=== PATIENT | female | born 1955 | race Caucasian/White ===

== ENCOUNTER 2024-09-22 07:44 | Outpatient (RCR) | payer MEDICARE, SELFPAY | END 2024-09-22 23:59 | disposition home or self-care (01) | LOC: RPT 07:44 | PROVIDERS: ATTENDING PHYSICIAN Internal Medicine; REFERRING PHYSICIAN Orthopaedic Surgery Orthopaedic Surgery of the Spine | DX: Z47.89 Encounter for other orthopedic aftercare (principal); M54.2 Cervicalgia; Z73.6 Limitation of activities due to disability; R20.0 Anesthesia of skin; M79.602 Pain in left arm; M62.81 Muscle weakness (generalized) | CPT/HCPCS: 97010; 97110; 97112; 97140; 97162 ==

== ENCOUNTER 2024-11-20 10:23 | Emergency (ER) | payer MEDICARE, SELFPAY ==
[2024-11-20] VITALS (8 sets, daily range): BP systolic 135–159; BP diastolic 83–141; BMI 28.2
[2024-11-20 10:58] LABS: Hematocrit 40.5 % (37.0-47.0); Hemoglobin 13.0 g/dL (12.0-16.0); Mean Corp Hgb Conc. 32.1 g/dL (33.0-37.0); Mean Corpuscular Volume 88.2 fL (81.0-99.0); Nucleated Red Blood Cells % 0 %; Platelet Count 287 10^3/uL (130-400); Red Cell Dist. Width 13.2 % (11.5-14.5)
[2024-11-20 11:12] LABS: ALT (SGPT) 52 U/L (0-35); AST (SGOT) 40 U/L (14-36); Albumin 4.3 g/dl (3.5-5.0); Alkaline Phosphatase 61 U/L (38-126); Blood Urea Nitrogen 16 mg/dl (7-17); Calcium 10.0 mg/dl (8.4-10.2); Carbon Dioxide 26 mmol/L (22-30); Chloride 108 mmol/L (98-107); Glucose 167 mg/dl (70-99); Potassium 4.7 mmol/L (3.5-5.1); Sodium 138 mmol/L (135-145); Total Protein 6.8 g/dl (6.3-8.2); eGFR > 60.00
[2024-11-20 11:23] LABS: Troponin I < 0.012 ng/ml
--- NOTE | 2024-11-20 11:59 | ED.GENMED ---
History of Present Illness
General
Chief Complaint: Chest Pain
Source: patient
Exam Limitations: none
Time Seen by Provider: 11/20/24 11:44
History of Present Illness
History of Present Illness:
69-year-old female presents with central chest discomfort that radiated to her neck into her back. Today's episode was different than it has been, she has had intermittent chest discomfort over the past couple weeks nonexertional quite random.
Today the symptoms into her neck and back were different. She also notes slight short of breath. No pleuritic component to her discomfort. She has not noticed any increased pain with eating. No recent travel or surgery. No leg swelling or calf
pain currently on my exam she is pain-free. She does have a strong family history of cardiac disease.
Past History
Past History
ED Past Medical History: None
ED Past Surgical History: None
Phy Exam
Physical Exam
Physical Exam:
General: Well-appearing female no acute respiratory distress
HEENT normocephalic atraumatic
Heart: Regular rate and rhythm lungs: Clear no wheeze
Abdomen is soft nontender
Extremities: No cyanosis
Vascular: 2+ radial pulses bilaterally
Scores
Heart Score for Chest Pain Patients
STEMI patient?: No
History: Slightly or Non-Suspicious
ECG: Normal
Age: >/= 65 years
Risk Factors: 1 or 2 Risk Factors
Troponin: </= Normal Limit
Heart Score for Chest Pain Patients: 3
Heart Score Risk: 2.5% MACE over next 6 weeks
Course
Orders/Labs/Results
Orders:
Orders
11/20/24 10:35
Electrocardiogram (*1) Urgent
Reason for Study: Chest Pain
EKG- Treatment ONCE
11/20/24 10:41
CMP [Comprehensive Metabolic Panel] Urgent
Complete Blood Count/With Diff Urgent
Lipase Urgent
Comment: ADD ON
Troponin I Urgent
11/20/24 11:58
CT Chest Angio W/wo Iv Contras Urgent
Comment:
Reason For Exam: chest, neck and back pain
11/20/24 12:01
Add On- LAB Urgent
Tests Added?: lipase
11/20/24 14:45
Troponin I Urgent
Abnormal Lab Results
11/20/24
10:41
MCHC 32.1 L g/dL
(33.0-37.0)
Chloride 108 H mmol/L
(98-107)
Glucose 167 H mg/dl
(70-99)
AST 40 H U/L
(14-36)
ALT 52 H U/L
(0-35)
11/20/24 10:41
11/20/24 10:41
Vital Signs
Initial and Last Documented VS:
Initial Vital Signs
Temp Pulse Resp BP Pulse Ox
97.8 F 79 18 149/100 99
11/20/24 10:30 11/20/24 10:30 11/20/24 10:30 11/20/24 10:30 11/20/24 10:30
Last Documented Vital Signs
Temp Pulse Resp BP Pulse Ox
97.8 F 67 9 156/83 97
11/20/24 10:30 11/20/24 16:15 11/20/24 16:15 11/20/24 15:05 11/20/24 16:15
MDM/Problems Addressed
Differential Diagnosis Includes:
Chest neck and back pain. Consider ACS versus PE versus dissection versus GI related discomfort. EKG through triage shows sinus rhythm without ischemic changes. Initial troponin is undetectable. Repeat troponin pending. Will add lipase. Will
also check CT angio of the chest. She is slightly hypertensive 140s over 90s
*Pulse Oximetry
SaO2: 97
Oxygen Mode of Delivery: Room air
Patient hypoxic: no
*Critical Care Note
Total Time (30-74mins, 75-104mins- exclusive of procedures): Not Applicable
Update Note
Update Note:
Initial and repeat troponin undetectable. CT angio of the chest also normal without signs of dissection or aneurysm. Patient remains pain-free. Workup here unremarkable but given significant family history of cardiac disease, will refer her to
cardiology for follow-up. Stable for discharge otherwise
ED Attending Note
-
Portions of this chart may have been created with voice recognition software.� Occasional wrong word or��sound alike� substitutions may have occurred due to the inherent limitations of voice recognition software.
Discharge Plan
Departure
Patient Disposition: Home (Routine Discharge)
Date of Disposition: 11/20/24
Time of Disposition: 16:33
Patient with high blood pressure during this ER visit?: No
Discharge Problem:
Chest pain
Instructions: Chest Pain CBC Follow Up
Referrals:
Bibi Dumont MD [Family Provider, Family Practice]
Activity Restrictions/Additional Instructions:
Please return here for worsening symptoms otherwise follow-up with cardiology
Interventions
Interventions:
*Risk Screen - Suicide Last Done: 11/20/24 10:30
*General Assessment Last Done: 11/20/24 11:39
*Neglect/Abuse Screening Last Done: 11/20/24 10:30
*ED- Fall Risk Assessment Last Done: 11/20/24 11:39
*ED COVID-19 Vaccine History Last Done: 11/20/24 11:39
ED- Cardiac Assessment Last Done: 11/20/24 11:39
Discharge Date and Time
Print Language: JAPANESE
[2024-11-20 12:53] LABS: Lipase 60 U/L (23-300)
[2024-11-20 15:26] LABS: Troponin I < 0.012 ng/ml
== END 2024-11-20 16:48 | disposition home or self-care (01) ==
LOC: EMR 10:23
PROVIDERS: Physician Assistant; EMERGENCY PHYSICIAN Emergency Medicine; FAMILY PHYSICIAN Family Medicine
DX: R07.9 Chest pain, unspecified (principal); Z82.49 Family history of ischemic heart disease and other diseases of the circulatory system
CPT/HCPCS: 99284; 71275; 80053; 83690; 84484; 85025; 93005; Q9967

== ENCOUNTER 2024-11-22 08:51 | Outpatient (RCR) | payer MEDICARE, SELFPAY | END 2024-11-22 23:59 | disposition home or self-care (01) | LOC: RPT 08:51 | PROVIDERS: ATTENDING PHYSICIAN Physical Medicine & Rehabilitation; FAMILY PHYSICIAN Family Medicine | DX: M48.061 Spinal stenosis, lumbar region without neurogenic claudication (principal); Z73.6 Limitation of activities due to disability; R26.89 Other abnormalities of gait and mobility | CPT/HCPCS: 97010; 97110; 97112; 97161; 97530 ==

== ENCOUNTER 2024-11-28 10:01 | Outpatient (RCR) | payer MEDICARE, SELFPAY | END 2024-12-01 10:54 | disposition home or self-care (01) | LOC: RPT 10:01 | PROVIDERS: ATTENDING PHYSICIAN Physical Medicine & Rehabilitation; FAMILY PHYSICIAN Family Medicine | DX: M48.061 Spinal stenosis, lumbar region without neurogenic claudication (principal); Z73.6 Limitation of activities due to disability; R26.89 Other abnormalities of gait and mobility | CPT/HCPCS: 97010; 97110 ==

== ENCOUNTER → 2024-12-06 07:52 | Outpatient (REF) | payer MEDICARE, SELFPAY | LOC: RCS 07:52 | PROVIDERS: ATTENDING PHYSICIAN Internal Medicine Cardiovascular Disease; FAMILY PHYSICIAN Family Medicine | DX: R07.9 Chest pain, unspecified (principal); Z82.49 Family history of ischemic heart disease and other diseases of the circulatory system | CPT/HCPCS: 93017 ==

== ENCOUNTER → 2024-12-07 14:20 | Outpatient (REF) | payer MEDICARE, SELFPAY | LOC: RCS 14:20 | PROVIDERS: ATTENDING PHYSICIAN Internal Medicine Cardiovascular Disease; FAMILY PHYSICIAN Family Medicine | DX: R03.0 Elevated blood-pressure reading, without diagnosis of hypertension (principal); R07.9 Chest pain, unspecified | CPT/HCPCS: 93306 ==

== ENCOUNTER → 2024-12-08 06:50 | Outpatient (REF) | payer MEDICARE, SELFPAY | LOC: RAD 06:50 | PROVIDERS: ATTENDING PHYSICIAN Family Medicine | DX: E04.2 Nontoxic multinodular goiter (principal) | CPT/HCPCS: 76536 ==

== ENCOUNTER → 2024-12-14 08:45 | Outpatient (REF) | payer MEDICARE, SELFPAY | LOC: RCS 08:45 | PROVIDERS: ATTENDING PHYSICIAN Internal Medicine Cardiovascular Disease; FAMILY PHYSICIAN Family Medicine | DX: R94.39 Abnormal result of other cardiovascular function study (principal); R07.9 Chest pain, unspecified | CPT/HCPCS: 93017; 93350 ==

== ENCOUNTER → 2025-01-10 08:51 | Outpatient (REF) | payer MEDICARE, SELFPAY ==
[2025-01-10 10:05] VITALS: BP 136/84; BP_SYST 78
[2025-01-10 10:51] VITALS: BP 136/84
== END ==
LOC: RADI 08:51
PROVIDERS: ATTENDING PHYSICIAN Family Medicine
DX: E04.1 Nontoxic single thyroid nodule (principal)
CPT/HCPCS: 10005; 88173

== ENCOUNTER → 2025-03-02 08:10 | Outpatient (REF) | payer MEDICARE, SELFPAY ==
[2025-03-02 09:44] LABS: Hematocrit 41.1 % (37.0-47.0); Hemoglobin 13.2 g/dL (12.0-16.0); Mean Corp Hgb Conc. 32.1 g/dL (33.0-37.0); Mean Corpuscular Volume 87.8 fL (81.0-99.0); Nucleated Red Blood Cells % 0 %; Platelet Count 282 10^3/uL (130-400); Red Cell Dist. Width 12.8 % (11.5-14.5)
[2025-03-02 10:05] LABS: ALT (SGPT) 46 U/L (0-35); AST (SGOT) 39 U/L (14-36); Albumin 4.4 g/dl (3.5-5.0); Alkaline Phosphatase 66 U/L (38-126); Blood Urea Nitrogen 12 mg/dl (7-17); Calcium 10.1 mg/dl (8.4-10.2); Carbon Dioxide 29 mmol/L (22-30); Chloride 105 mmol/L (98-107); Glucose 103 mg/dl (70-99); HDL Cholesterol 57 mg/dl; LDL Cholesterol, Calculated 133 mg/dl; Potassium 4.8 mmol/L (3.5-5.1); Sodium 138 mmol/L (135-145); Total Protein 7.0 g/dl (6.3-8.2); Very Low Density Lipoprotein 31 mg/dl (0-30); eGFR > 60.00
== END ==
LOC: REG 08:10
PROVIDERS: ATTENDING PHYSICIAN Family Medicine
DX: E04.2 Nontoxic multinodular goiter (principal); R73.03 Prediabetes; E78.9 Disorder of lipoprotein metabolism, unspecified; R03.0 Elevated blood-pressure reading, without diagnosis of hypertension
CPT/HCPCS: 36415; 80053; 80061; 84439; 84443; 85025

== ENCOUNTER 2025-03-04 05:31 | Observation (INO) | payer MEDICARE, SELFPAY ==
[2025-03-04] VITALS (14 sets, daily range): BP systolic 109–138; BP diastolic 68–103; PULSE 90; O2SAT 99; BMI 29.7; BMI 23.6
[2025-03-04 01:00] LABS: Hematocrit 37.7 % (37.0-47.0); Hemoglobin 12.0 g/dL (12.0-16.0); Mean Corp Hgb Conc. 31.8 g/dL (33.0-37.0); Mean Corpuscular Volume 88.3 fL (81.0-99.0); Nucleated Red Blood Cells % 0 %; Platelet Count 284 10^3/uL (130-400); Red Cell Dist. Width 12.9 % (11.5-14.5)
--- NOTE | 2025-03-04 01:05 | ED.GENMED ---
History of Present Illness
<ELGIN Page Jr. Last Filed: 03/05/25 06:15>
General
Chief Complaint: Fall
Source: patient
Exam Limitations: none
Time Seen by Provider: 03/04/25 00:38
Nursing documentation reviewed up to this point in time: agreed with
History of Present Illness
History of Present Illness:
69-year-old female presenting to the emergency department today with concerns of a fall down 5 steps hit her right hip directly denies any additional injuries did not hit her head did not lose consciousness no neck pain no abdominal pain no arm pain.
Past History
<ELGIN Page Jr. Last Filed: 03/05/25 06:15>
Past History
ED Past Medical History: None
ED Past Surgical History: None
Review of Systems
<Sukumar Hilario Jr., PA-C - Last Filed: 03/05/25 06:15>
Review of Systems
Allergies reviewed?: Yes
All Other Systems: ROS reviewed and negative except as documented in HPI and ROS
Phy Exam
<ELGIN Page Jr. Last Filed: 03/05/25 06:15>
Physical Exam
Physical Exam:
GENERAL: Alert , in no apparent distress
EYE: pupils equal and reactive
NECK: Supple, no significant adenopathy.
ENT: o/p clr, mmm.
CARDIAC: Regular rate and rhythm .
LUNGS: Clear breath sounds bilaterally, no acute respiratory distress, no wheezes/rales/rhonchi
ABDOMEN: Soft, without focal tenderness, no r/g, no cvat
NEUROLOGICAL: Alert and oriented, no focal neuro deficits
SKIN: Warm and dry, skin intact.
MUSCULOSKELETAL: Tender palpation of the right lateral superior hip region and right buttock with associated swelling to the area. No overlying skin changes able to move at the hip with some discomfort. No edema, well perfused.
PSYCH: Normal and appropriate interaction.
Course
<Sukumar Hilario Jr., ELGIN - Last Filed: 03/05/25 06:15>
Orders/Labs/Results
Orders:
Orders
03/04/25 00:49
Complete Blood Count/With Diff Urgent
Comprehensive Metabolic Panel Urgent
03/04/25 00:54
Hip, Right 2-3 Views [CR Hip - RT w/wo Pel 2-3 Vw*] Urgent
Comment:
Reason For Exam: right hip pin after fall
Include a pelvis x-ray?: Yes
03/04/25 01:24
Type+Screen Routine
BBK Wristband Number:
03/04/25 02:25
CT Pelvis W/o Iv Contrast Urgent
Comment:
Reason For Exam: fall cant walk, xray NAD
03/04/25 02:48
Ketorolac [Toradol] 15 mg IV NOW STA
03/04/25 04:14
Ondansetron Injectable [Zofran] 4 mg .ROUTE .STK-MED ONE
03/04/25 04:16
Ondansetron Injectable [Zofran] 4 mg IV NOW STA
03/04/25 04:33
Ice Pack-Treatment DIRECTED
Location: right posterior hip
03/04/25 05:15
Admit/Transfer Patient As Directed
Co-Sign Provider:
Level of Care: Observation services
Assign to:: Medical/Surgical
Physician / Group: Mathew
Diagnosis: Ambulatory dysfunction, Large R gluteal subcutanous hematoma
Reason for Hospitalization: Ambulatory dysfunction, Large R gluteal subcutanous hematoma
Code Status As Directed
Resuscitation Status: Full Code
PRN Pain Medication Management As Directed
May give lesser potent ordered pain med per pt: Yes
preference::
Protocol:: Medication orders for pain may be administered in a
manner that supports deferring to patient preference
when the pt is:
- Requesting an ordered lesser potent pain medication.
Least to most potent pain medications are defined
as: acetaminophen < NSAID < tramadol < opioids
(morphine, oxycodone, hydromorphone).
- Requesting a lesser dose of the same medication IF
ORDERED.
- Requesting a less intrusive route of administration
if both routes are prescribed by the provider (PO <
IV).
03/04/25 06:09
Acetaminophen [Tylenol] 650 mg PO Q4HPRN PRN
Bisacodyl [Dulcolax] 10 mg RECTAL [id number] PRN
Dextrose 50%-Water [Dextrose 50% Syringe] 12.5 grams IV [id number] PRN
Docusate W/Senna [Senokot-S] 1 tablet PO BIDPRN PRN
Glucagon [GlucaGen] 1 mg IM PRN PRN
Oxycodone [Roxicodone] 5 mg PO Q4HPRN PRN
Polyethylene Glycol Powder [Miralax] 17 grams PO DAILYPRN PRN
03/04/25 06:09
Activity As Directed
Activity Level: With Assistance
Bedside Glucose Monitoring As Directed
Frequency: AC&HS
Additional Instructions:: Change to q6h if pt on TPN, tube feeding or not eating
Ice Application [Cold Application] As Directed
Location: Right gluteal
Frequency: Intermittent q4h
Duration of Application: No longer than 30 minutes
Method of Delivery: Ice packs
Pneumatic Compression Sleeves As Directed
Type: Knee high
Vital Signs As Directed
Frequency: Per unit guidelines
Pulse Ox/spot Check [RESP] Routine
Quantity: 1
Pt Eval And Treat Routine
Activity Level: With Assistance
DX Deep Vein Thrombosis Video Routine
03/04/25 07:28
H&H Q8H
03/04/25 07:30
Insulin Aspart Corrective Low [Novolog Flexpen-Low Resistance] See Protocol SC AC
03/04/25 08:00
Fluoxetine HCl [Prozac] 40 mg PO DAILY
METFORMIN HCl [Glucophage] 500 mg PO BID
Pantoprazole [Protonix] 40 mg PO DAILY
03/04/25 09:00
Ketorolac [Toradol] 10 mg IV Q6HPRN PRN
03/04/25 10:00
Ondansetron Injectable [Zofran] 4 mg IV Q6HPRN PRN
03/04/25 16:27
H&H Q8H
Abnormal Lab Results
03/04/25
00:49
WBC 13.6 H 10^3/uL
(4.8-10.8)
MCHC 31.8 L g/dL
(33.0-37.0)
Absolute Neuts (auto) 9.8 H 10^3/uL
(1.4-6.5)
Absolute Monos (auto) 0.8 H 10^3/uL
(0.1-0.6)
Lymphocytes % 19.5 L %
(20.5-51.1)
Glucose 137 H mg/dl
(70-99)
AST 39 H U/L
(14-36)
ALT 39 H U/L
(0-35)
03/04/25 00:49
03/04/25 00:49
Vital Signs
Initial and Last Documented VS:
Initial Vital Signs
BP
132/81
03/04/25 00:40
Last Documented Vital Signs
Temp Pulse Resp BP Pulse Ox
98.3 F 97 18 137/71 96
03/04/25 23:55 03/04/25 23:55 03/04/25 23:55 03/04/25 23:55 03/04/25 23:55
<Ruth Medina, DO - Last Filed: 03/04/25 04:34>
Orders/Labs/Results
Orders:
Orders
03/04/25 00:49
Complete Blood Count/With Diff Urgent
Comprehensive Metabolic Panel Urgent
03/04/25 00:54
Hip, Right 2-3 Views [CR Hip - RT w/wo Pel 2-3 Vw*] Urgent
Comment:
Reason For Exam: right hip pin after fall
Include a pelvis x-ray?: Yes
03/04/25 01:24
Type+Screen Routine
BBK Wristband Number:
03/04/25 02:25
CT Pelvis W/o Iv Contrast Urgent
Comment:
Reason For Exam: fall cant walk, xray NAD
03/04/25 02:48
Ketorolac [Toradol] 15 mg IV NOW STA
03/04/25 04:14
Ondansetron Injectable [Zofran] 4 mg .ROUTE .STK-MED ONE
03/04/25 04:16
Ondansetron Injectable [Zofran] 4 mg IV NOW STA
03/04/25 04:33
Ice Pack-Treatment DIRECTED
Location: right posterior hip
03/04/25 05:15
Admit/Transfer Patient As Directed
Co-Sign Provider:
Level of Care: Observation services
Assign to:: Medical/Surgical
Physician / Group: Mathew
Diagnosis: Ambulatory dysfunction, Large R gluteal subcutanous hematoma
Reason for Hospitalization: Ambulatory dysfunction, Large R gluteal subcutanous hematoma
Code Status As Directed
Resuscitation Status: Full Code
PRN Pain Medication Management As Directed
May give lesser potent ordered pain med per pt: Yes
preference::
Protocol:: Medication orders for pain may be administered in a
manner that supports deferring to patient preference
when the pt is:
- Requesting an ordered lesser potent pain medication.
Least to most potent pain medications are defined
as: acetaminophen < NSAID < tramadol < opioids
(morphine, oxycodone, hydromorphone).
- Requesting a lesser dose of the same medication IF
ORDERED.
- Requesting a less intrusive route of administration
if both routes are prescribed by the provider (PO <
IV).
03/04/25 06:09
Acetaminophen [Tylenol] 650 mg PO Q4HPRN PRN
Bisacodyl [Dulcolax] 10 mg RECTAL [id number] PRN
Dextrose 50%-Water [Dextrose 50% Syringe] 12.5 grams IV [id number] PRN
Docusate W/Senna [Senokot-S] 1 tablet PO BIDPRN PRN
Glucagon [GlucaGen] 1 mg IM PRN PRN
Oxycodone [Roxicodone] 5 mg PO Q4HPRN PRN
Polyethylene Glycol Powder [Miralax] 17 grams PO DAILYPRN PRN
03/04/25 06:09
Activity As Directed
Activity Level: With Assistance
Bedside Glucose Monitoring As Directed
Frequency: AC&HS
Additional Instructions:: Change to q6h if pt on TPN, tube feeding or not eating
Ice Application [Cold Application] As Directed
Location: Right gluteal
Frequency: Intermittent q4h
Duration of Application: No longer than 30 minutes
Method of Delivery: Ice packs
Pneumatic Compression Sleeves As Directed
Type: Knee high
Vital Signs As Directed
Frequency: Per unit guidelines
Pulse Ox/spot Check [RESP] Routine
Quantity: 1
Pt Eval And Treat Routine
Activity Level: With Assistance
DX Deep Vein Thrombosis Video Routine
03/04/25 07:28
H&H Q8H
03/04/25 07:30
Insulin Aspart Corrective Low [Novolog Flexpen-Low Resistance] See Protocol SC AC
03/04/25 08:00
Fluoxetine HCl [Prozac] 40 mg PO DAILY
METFORMIN HCl [Glucophage] 500 mg PO BID
Pantoprazole [Protonix] 40 mg PO DAILY
03/04/25 09:00
Ketorolac [Toradol] 10 mg IV Q6HPRN PRN
03/04/25 10:00
Ondansetron Injectable [Zofran] 4 mg IV Q6HPRN PRN
03/04/25 16:27
H&H Q8H
Abnormal Lab Results
03/04/25
00:49
WBC 13.6 H 10^3/uL
(4.8-10.8)
MCHC 31.8 L g/dL
(33.0-37.0)
Absolute Neuts (auto) 9.8 H 10^3/uL
(1.4-6.5)
Absolute Monos (auto) 0.8 H 10^3/uL
(0.1-0.6)
Lymphocytes % 19.5 L %
(20.5-51.1)
Glucose 137 H mg/dl
(70-99)
AST 39 H U/L
(14-36)
ALT 39 H U/L
(0-35)
03/04/25 00:49
03/04/25 00:49
Vital Signs
Initial and Last Documented VS:
Initial Vital Signs
BP
132/81
03/04/25 00:40
Last Documented Vital Signs
Temp Pulse Resp BP Pulse Ox
98.3 F 97 18 137/71 96
03/04/25 23:55 03/04/25 23:55 03/04/25 23:55 03/04/25 23:55 03/04/25 23:55
<Sukumar Hilario Jr., PA-C - Last Filed: 03/05/25 06:15>
MDM/Problems Addressed
MDM/Problems Addressed:
69-year-old female presenting after trip down 5 steps landing on the right hip. No loss of consciousness did not hit her head not on blood thinners. Patient does have pain and swelling to the right buttock region. Initial x-ray did not show signs
of fracture but patient unable to ambulate concerning the CT scan was performed.
<Sukumar Hilario Jr., PA-C - Last Filed: 03/05/25 06:15>
*Pulse Oximetry
SaO2: 99
Oxygen Mode of Delivery: Room air
<Ruth Medina DO - Last Filed: 03/04/25 04:34>
*Radiology
Radiology exam reviewed: radiology read reviewed
*Pulse Oximetry
Patient hypoxic: no
*Critical Care Note
Total Time (30-74mins, 75-104mins- exclusive of procedures): Not Applicable
ED Attending Note
<Sukumar Hilario Jr., PA-C - Last Filed: 03/05/25 06:15>
-
Portions of this chart may have been created with voice recognition software.� Occasional wrong word or��sound alike� substitutions may have occurred due to the inherent limitations of voice recognition software.
<Ruth Medina DO - Last Filed: 03/04/25 04:34>
ED Attending Note
Patient seen and examined by attending physician: Yes
I performed a history and physical exam of patient and discussed management with resident, I reviewed resident's note and agree with documented findings and plan of care.: Yes
ED Attending Note:
69-year-old woman suffered a trip and fall at home tonight landing on her right buttock/right posterior hip. Presents with severe right hip pain. Unable to bear weight.
Exam notable for moderate soft tissue swelling right posterior hip/right buttock, exquisite local tenderness. Moderately restricted range of motion of right hip. Distal sensation and strength intact.
Right hip/pelvis x-ray shows no evidence of fracture.
CT shows no evidence of fracture but note of a large subcutaneous hematoma overlying the right gluteal musculature measuring 13 x 3 x 11 cm with surrounding soft tissue stranding.
She remains hemodynamically stable. Labs within normal limits.
Due to inability to bear weight, patient will require acute hospitalization for pain control.
Discharge Plan
Departure
Patient Disposition: Admit
Date of Disposition: 03/04/25
Time of Disposition: 04:31
Admit to: Med/Surg
Admit to doctor: Julienne
Presentation/result/management discussed w/ accepting MD/DO: Hospitalist
Condition: Fair
Discharge Problem:
Right buttock contusion/hematoma, Acute ambulatory dysfunction
Interventions
Interventions:
*Risk Screen - Suicide Last Done: 03/04/25 00:49
*General Assessment Last Done: 03/04/25 00:50
*Neglect/Abuse Screening Last Done: 03/04/25 00:49
*ED COVID-19 Vaccine History Last Done: 03/04/25 00:45
*ED Influenza Vaccine History Last Done: 03/04/25 00:45
[facility] Fall Risk Assessment Tool Last Done: 03/04/25 00:36
*Nursing Disposition Last Done: 03/04/25 06:22
ED-Musculoskeletal Assessment Last Done: 03/04/25 01:17
ED- Neurological Assessment Last Done: 03/04/25 01:16
ED-Skin Assessment Last Done: 03/04/25 01:17
Discharge Date and Time
Discharge Date/Time: 03/04/25 06:23
[2025-03-04 01:29] LABS: ALT (SGPT) 39 U/L (0-35); AST (SGOT) 39 U/L (14-36); Albumin 4.1 g/dl (3.5-5.0); Alkaline Phosphatase 60 U/L (38-126); Blood Urea Nitrogen 17 mg/dl (7-17); Calcium 10.2 mg/dl (8.4-10.2); Carbon Dioxide 26 mmol/L (22-30); Chloride 107 mmol/L (98-107); Estimated Creatinine Clearance 87 ml/min; Glucose 137 mg/dl (70-99); Potassium 4.6 mmol/L (3.5-5.1); Sodium 138 mmol/L (135-145); Total Protein 6.8 g/dl (6.3-8.2); eGFR > 60.00
[2025-03-04] MEDS: TORADOL 15 MG IV (03:01)
[2025-03-04] MEDS: ZOFRAN 4 MG IV (04:16)
--- NOTE | 2025-03-04 04:53 | HPS.HSE ---
Family Physician
-
Family Physician: Bibi Dumont MD
Chief Complaint
-
Falls
History of Present Illness
This is a 69-year-old female with past medical history significant for ceo-shdwdak-wjegjeavg diabetes, GERD, nonalcoholic fatty liver disease, recent diagnosis of thyroid nodule pending for evaluation, new pulmonary nodule, on intra-abdominal nodule
pending MRI studies in about 2 weeks presents to the emergency department with right gluteal pain following a fall.
Patient reports a walking down wooden flight of stairs with socks on. She was walking had a spiral stairs she slipped and fell. She landed on her buttocks. She immediately had pain and swelling noted in the right gluteal region. She had no loss
of consciousness. She did not feel lightheaded or dizzy. She did not have a head strike. She has a prior history of cervical spine fusion in April and July to protect her head and neck.
She was transferred to the emergency department to evaluate for traumatic injury giving the degree of swelling in the gluteal region. She is not on any blood thinners. She denies NSAID use.
In the emergency department the patient has been afebrile, blood pressure was 182/100 with pulse of 61 and saturation of 90% on room air. Hemoglobin was 12.0, white count 30.6 platelet 284. Electrolytes BUN and creatinine were all in the normal
range. There is slight increase in AST and ALT to [address] of the pelvis showing large subcutaneous hematoma overlying the right gluteal musculature measuring 13.3 x 3.6 x 11.3 cm with surrounding soft tissue stranding. No fractures.
Medical History
Past Medical History
Past Medical History: Reports GERD (Lama's esophagus), NIDDM, Psychiatric (Anxiety) and Other (Nonalcoholic fatty liver disease, irritable bowel syndrome,)
Past Surgical History: Reports Appendectomy, and Orthopedic (cervical laminectomy c3,c7 and c4,5,6; right shoulder repair )
Social History
Tobacco: Non-smoker
Alcohol: Occasional
Drug: None
Personal: Single
Living: With Family
Family History
Family History: Not pertinent
Allergies / Home Medications
Allergies reflects when Allergies were last updated in [employer].
Home Medications with original date entered in [employer]
Allergy/Medication List:
Allergies
Allergy/AdvReac Type Severity Reaction Status Date / Time
nickel Allergy Unknown Unknown Verified 01/10/25 10:15
Sulfa (Sulfonamide Allergy Unknown Rash Verified 01/10/25 10:15
Antibiotics)
Home Medications
cholecalciferol (vitamin D3) 25 mcg (1,000 unit) capsule (Vitamin D3) 25 mcg PO DAILY 01/10/25
fluoxetine 40 mg capsule 40 mg PO DAILY 01/10/25
metformin 500 mg tablet 500 mg PO BID 01/10/25
omeprazole 40 mg capsule,delayed release 40 mg PO DAILY 01/10/25
Gabapentin 100 mg tablets, 300 mg p.o. daily
Review of Systems
-
Constitutional: Reports No Symptoms
EENT: Reports No Symptoms
Respiratory: Reports No Symptoms
Cardiac: Reports No Symptoms
Abdomen/GI: Reports No Symptoms
: Reports No Symptoms
Musculoskeletal: Reports No Symptoms
Skin: Reports Other
Neurological: Reports No Symptoms
Endocrine: Reports No Symptoms
Hematologic/Lymphatic: Reports No Symptoms
Psych: Reports No Symptoms
Physical Exam
Vital Signs
Vital Signs
Temp Pulse Resp BP Pulse Ox
97.4 F 67 22 122/102 99
03/04/25 00:41 03/04/25 04:01 03/04/25 04:01 03/04/25 04:01 03/04/25 04:01
Physical Exam
General: Well Developed, Well Nourished and No Apparent Distress
HEENT: NormoCephalic, Moist mucous membranes and Atraumatic
Respiratory: Clear
Cardiac: S1/S2 and Regular Rhythm; No Murmur or Rub
GI: Soft, Non Tender, Non Distended and Normal Bowel Sounds; No Organomegaly
Rectal: Deferred by Provider
Musculoskeletal: No Clubbing, No Cyanosis, No Edema and Other (Right gluteal hematoma, normal dorsalis pedis and tibialis posterior pulses bilaterally)
Skin: Warm
Neuro: AO x 3 and Nonfocal/grossly intact
Hematologic/Lymphatic: No Lymphadenopathy
Psych: Calm
Laboratory Results
-
03/04/25 00:49
03/04/25 00:49
Laboratory Results
Total Bilirubin 0.5 mg/dl (0.2-1.3) 03/04/25 00:49
AST 39 U/L (14-36) H 03/04/25 00:49
ALT 39 U/L (0-35) H 03/04/25 00:49
Alkaline Phosphatase 60 U/L (38-126) 03/04/25 00:49
Data Reviewed
-
CT Scan: Report Reviewed by me
Lab Data: Labs Reviewed by me
Old Records: Reviewed
Impression/Plan
-
IMPRESSION:
Patient with a mechanical fall while walking at down a flight of stairs and sleeping striking her buttocks and developing a large right sided subcutaneous hematoma overlying the right gluteal. She has significant pain and some ambulatory
dysfunction at this time. No fractures. Labs are stable. No significant drop in hemoglobin. No evidence of compartment syndrome.
PLAN:
Fall with a large right-sided subcutaneous hematoma overlying the right gluteal muscle. No deep hematoma. No compromise tissues. No fractures or dislocation.
� Admit to MedSurg observation
� Patient is not on any anticoagulation, hold off on anticoagulants at this time
- Trend H&H
� Pain control with acetaminophen and Toradol and if needed low-dose opioids
� Apply ice daily
� PT
Diabetes
� Can continue metformin 500 mg twice daily for now
� Sliding scale insulin
GERD
� Continue Meprazole
DVT prophylaxis�SCDs
CODE STATUS�full code
[2025-03-04 06:59] LABS: Glucose - Point of Care 123 mg/dl (70-99)
[2025-03-04 08:26] LABS: Hematocrit 32.4 % (37.0-47.0); Hemoglobin 10.6 g/dL (12.0-16.0)
[2025-03-04] MEDS: TORADOL 10 MG IV ×2 (09:27→21:14)
[2025-03-04] MEDS: PROTONIX 40 MG PO (09:27)
[2025-03-04] MEDS: GLUCOPHAGE 500 MG PO ×2 (09:27→18:02)
[2025-03-04] MEDS: PROZAC 40 MG PO (09:27)
[2025-03-04] MEDS: FLUSH (NSS) 2 FLUSH IV (09:28)
--- NOTE | 2025-03-04 11:53 | CM ---
I.A: Completed By KAREN Liu
Patient Lives with in a [address] with 2 [address]YOTI and 12 STI. No DME, No VN/PT, and No STR.
PCP: Dr. Bibi Drake
Pharm: [facility], but uses [facility].
Patient has transportation Home. PLAN: Anticipate Home No Needs. STALEY Signed
[2025-03-04] MEDS: TYLENOL 650 MG PO (11:54)
[2025-03-04 12:05] LABS: Glucose - Point of Care 136 mg/dl (70-99)
--- NOTE | 2025-03-04 14:20 | W.PN.UPDATE ---
Update Note
Progress Note Update
left buttock is bruised and some what firm, without evidence of compartment syndrome
will consult vascular suregry
trend hgb
if trending down then will need ct pel with con to assess for extravasation, renal function stable if needed
initial ct pelvis without con
[2025-03-04 16:35] LABS: Hematocrit 30.1 % (37.0-47.0); Hemoglobin 10.0 g/dL (12.0-16.0)
[2025-03-04 16:44] LABS: Glucose - Point of Care 128 mg/dl (70-99)
--- NOTE | 2025-03-04 17:28 | PTCARENOTE ---
Pt states that right hip/gluteal area pain is improved. Pt able to get OOB and sit in chair, use commode. Right hip area with +1 edema, not hard to palpate. Scattered bruising over right buttock remains the same from start of shift.
[2025-03-04 21:36] LABS: Glucose - Point of Care 153 mg/dl (70-99)
[2025-03-04] MEDS: NEURONTIN 300 MG PO (22:29)
[2025-03-05] MEDS: TORADOL 10 MG IV (05:24)
--- NOTE | 2025-03-05 07:33 | W.PN.UPDATE ---
Update Note
Progress Note Update
Seen and examined with GINA Martell. Full consultation to follow. 69-year-old female who last evening was walking down the stairs and slipped. Fell directly on her right buttock area. Had significant discomfort/pain. Difficulty walking due to
pain. Therefore presented to the emergency room. We were asked to evaluate regarding hematoma right buttock area. Patient notes that if she is not moving just sitting in bed she is very comfortable. She notes tenderness and/or some pain when she
bears weight or walk. However she notes that that has improved. She is actually been out of bed to the bathroom overnight and it has already improved she notes.
Other medical history include workup for a thyroid nodule, abnormal EKG (but notes her cardiac workup was negative), diabetes. No prior lower extremity revascularization procedures. No history of peripheral arterial disease. No prior history of
walking related issues.
On exam/she is awake and alert. She is in no acute distress. Breathing is unlabored. Abdomen is soft. Groins are flat with 2+ palpable femoral pulses bilaterally. Right buttock with ecchymosis. Skin is fully intact. No blistering, no
tenseness. The tissue/subcutaneous tissues are all soft. There is likely hematoma or some fullness in the buttock area. However again is noted it is not tense, no skin changes. Compartments/muscle compartments all feel soft. Feet are warm with
palpable 2+ pedal pulses bilaterally. Motor/sensory function of the leg/foot/ankle is intact.
CT scan noncontrast of the pelvis completed last evening reviewed. Hematoma subcutaneous right buttock area. No intramuscular hematoma noted.
Plan/ Right posterior pelvis/buttock area hematoma in the subcutaneous space. No rapid expansion, no severe pain at rest, no skin changes/blistering, no muscle compartment or other compression fracture. No indication for evacuation at this time.
Will sign off. Please call with questions. Of note if expanding or if hemoglobin continues to drop could consider CT angiogram. But clinically she seems to be improving I do not think there is any indication.
--- NOTE | 2025-03-05 07:33 | CON.VAS ---
Consultation
Consultation Request
Date/Time Consultation Performed: 03/05/2025 at 7 AM
Performing Provider: Dominick
Reason for Consultation: Gluteal hematoma
Medical History
-
Chief Complaint: Right gluteal pain
History of Present Illness:
69-year-old female with past medical history significant for diabetes, GERD, liver disease, cervical laminectomy presented to the emergency department last evening for right buttock swelling following a fall down some stairs. Following this patient
had discomfort/pain and difficulty walking which led to this ER visit. X-ray was negative for fracture. Noncon CT showed moderate subcutaneous hematoma. Patient admitted for monitoring. Vascular consult for hematoma on CT. Patient seen at
bedside this a.m. with Dr. Tan. Patient resting comfortably in bed. Patient states pain is getting more bearable and was able to ambulate to the bathroom multiple times this morning.
Past Medical History
Past Medical History: Other (GERD, Lama's esophagus, diabetes, anxiety, nonalcoholic fatty liver disease, IBS)
Past Surgical History: Other (Appendectomy, , cervical laminectomy C3, C7 and C4, 5, 6, right shoulder repair)
Social History
Tobacco: Non-Smoker
Alcohol: Occasional
Drug: None
Personal: Single
Living: With Family
Family History
Family History: Reviewed & Not Pertinent
Allergies / Home Medications
Allergy/AdvReac Type Severity Reaction Status Date / Time
nickel Allergy Unknown Unknown Verified 01/10/25 10:15
Sulfa (Sulfonamide Allergy Unknown Rash Verified 01/10/25 10:15
Antibiotics)
�Medication �Instructions �Recorded �Confirmed �Type
fluoxetine 40 mg capsule 40 mg PO DAILY 01/10/25 03/04/25 History
metformin 500 mg tablet 500 mg PO BID 01/10/25 03/04/25 History
omeprazole 40 mg capsule,delayed 40 mg PO DAILY 01/10/25 03/04/25 History
release
gabapentin 300 mg capsule 300 mg PO QPM 03/04/25 03/04/25 History
multivitamin 1 tab PO DAILY 03/04/25 03/04/25 History
Review of Systems
-
History Source: Family
All other systems: Negative unless noted
Constitutional: Reports No Symptoms
EENT: Reports No Symptoms
Respiratory: Reports No Symptoms
Cardiac: Reports No Symptoms
Vascular: Denies Leg Pain / Claudication
Abdomen/GI: Reports No Symptoms
: Reports No Symptoms
Musculoskeletal: Reports Muscle Pain, Muscle Stiffness and Edema
Skin: Reports Other (Right gluteal bruising)
Neurological: Reports No Symptoms
Physical Exam
Vital Signs
Temp Pulse Resp BP Pulse Ox
98.3 F 97 18 137/71 96
03/04/25 23:55 03/04/25 23:55 03/04/25 23:55 03/04/25 23:55 03/04/25 23:55
Physical Exam
General: No Apparent Distress
HEENT: Normocephalic and Atraumatic
Respiratory: Non Labored Respirations
Cardiac: Negative JVD
Breast: Deferred by me
GI: Soft and Non Tender
Musculoskeletal: No Clubbing, No Cyanosis and Edema (Right gluteal)
Skin: Warm and Other (Moderate ecchymosis)
Neuro: Awake, Alert and Oriented
Psych: Calm
Pulses: Bilateral Dorsalis Pedis: +2
Assessment / Plan
-
Plan/ Right posterior pelvis/buttock area hematoma in the subcutaneous space. No rapid expansion, no severe pain at rest, no skin changes/blistering, no muscle compartment or other compression fracture. No indication for evacuation at this time.
Will sign off. Please call with questions. Of note if expanding or if hemoglobin continues to drop could consider CT angiogram. But clinically she seems to be improving I do not think there is any indication.
Data Reviewed
-
CT Scan: Discussed with Patient
Labs: Discussed with Patient
[2025-03-05 08:20] VITALS: BP 117/80
[2025-03-05 08:31] LABS: Hematocrit 30.6 % (37.0-47.0); Hemoglobin 10.0 g/dL (12.0-16.0); Mean Corp Hgb Conc. 32.7 g/dL (33.0-37.0); Mean Corpuscular Volume 89.2 fL (81.0-99.0); Platelet Count 240 10^3/uL (130-400); Red Cell Dist. Width 13.0 % (11.5-14.5)
[2025-03-05 08:37] LABS: Glucose - Point of Care 112 mg/dl (70-99)
[2025-03-05] MEDS: PROZAC 40 MG PO (08:40)
[2025-03-05] MEDS: PROTONIX 40 MG PO (08:40)
[2025-03-05] MEDS: GLUCOPHAGE 500 MG PO (08:40)
[2025-03-05 09:04] LABS: Blood Urea Nitrogen 16 mg/dl (7-17); Calcium 9.8 mg/dl (8.4-10.2); Carbon Dioxide 27 mmol/L (22-30); Chloride 104 mmol/L (98-107); Estimated Creatinine Clearance 67 ml/min; Glucose 104 mg/dl (70-99); Potassium 4.6 mmol/L (3.5-5.1); Sodium 135 mmol/L (135-145); eGFR > 60.00
[2025-03-05 12:48] LABS: Glucose - Point of Care 117 mg/dl (70-99)
--- NOTE | 2025-03-05 15:17 | W.DCSUMMARY ---
Discharge Summary
Discharge Data
Date of Admission: 03/04/25
Date of Discharge: 03/05/25
-
Pending Results: No
Hospital Course
Primary diagnosis:
Mechanical fall leading to right gluteal hematoma
Secondary diagnosis:
Diabetes mellitus type 2
Gastroesophageal reflux disease
Hospital course:
Patient had a mechanical fall while walking down a flight of stair striking her buttocks and developing a large right-sided subcutaneous hematoma overlying the right gluteal area. She was admitted because of ambulatory dysfunction from severe pain.
No fractures were noted. Her hemoglobin dropped from 12-10 and has been stable for 24 hours.
Was evaluated by vascular surgery who did not see any compartmental issue-had hematoma was in the subcutaneous tissue and there was no intramuscular hematoma. Skin over the hematoma was also intact.
As she felt improved and the pain and was ambulating in the hospital. She was also seen by PT who recommended home health.
She is not on any blood thinners.
She was advised to avoid NSAIDs with the hematoma. She was given a prescription for tramadol for pain if Tylenol does not work.
She was advised to watch for any fevers or worsening of the hematoma pain case to get in touch with the doctor.
Today she was afebrile, pulse 93 blood pressure 117/80.
Denies any dizziness. Heart sounds S1 pulses are regular. Chest was clear. Abdomen is soft. Right buttock with ecchymosis and intact skin.. Pedal pulses in the legs were palpable.
She was deemed stable for discharge to home with home health today.
Consultants on board:
Vascular surgery-Jono Singh
Discharge Plan
-
Patient Disposition: Home with Home Care
Discharge Diagnosis/Procedures: Mechanical fall leading to right buttock hematoma
Diet: Regular
Activity: As tolerated
Driving Restrictions: As prior to admission
Bathing Restrictions: None
Other Services: VN
Referrals:
Bibi Dumont MD [Family Provider, Family Practice] - in less than 1 week
Prescriptions:
New
acetaminophen 325 mg Tablet
650 mg PO Q4HPRN PRN (Reason: mild pain/PENG/temp> 100.4F) Qty: 1 0RF
tramadol 50 mg tablet
50 mg PO Q6H PRN (Reason: moderate pain) Qty: 12 0RF
Continued
fluoxetine 40 mg Capsule
40 mg PO DAILY
metformin 500 mg Tablet
500 mg PO BID
omeprazole 40 mg Capsule,Delayed Release(Dr/Ec)
40 mg PO DAILY
multivitamin Tablet
1 tab PO DAILY
gabapentin 300 mg Capsule
300 mg PO QPM
Rx Instructions:
pt takes at 2000 daily
Discharge Orders:
Discharge Patient (As Directed); Ordered 03/05/25
Ordered By: Alan Thompson
Discharge Date and Time
Print Language: ARGENTINE
--- NOTE | 2025-03-05 15:30 | CM ---
Chart reviewed. Patient will discharge home today
Met w/ patient bedside, reviewed therapy rec of home PT and issuing a RW. Patient declined both home health and RW stating she's been up walking around and doesn't need neither.
Daughter will transport home
Plan: Home, no needs. Declined home health
[2025-03-05 15:46] VITALS: BP 114/71
== END 2025-03-05 16:17 | disposition home health service (06) ==
LOC: 4 EAST ACU 05:31
PROVIDERS: Hospitalist; Physician Assistant; ADMITTING PHYSICIAN Internal Medicine; ATTENDING PHYSICIAN Internal Medicine; EMERGENCY PHYSICIAN Emergency Medicine; FAMILY PHYSICIAN Family Medicine; OTHER PHYSICIAN Surgery Vascular Surgery
DX: S30.0XXA Contusion of lower back and pelvis, initial encounter (principal); R26.2 Difficulty in walking, not elsewhere classified; E11.9 Type 2 diabetes mellitus without complications; K21.9 Gastro-esophageal reflux disease without esophagitis; M47.816 Spondylosis without myelopathy or radiculopathy, lumbar region; W10.9XXA Fall (on) (from) unspecified stairs and steps, initial encounter; Z79.899 Other long term (current) drug therapy
CPT/HCPCS: 72192; 73502; 80048; 80053; 82962; 85014; 85018; 85025; 85027; 86850; 86900; 86901; 96374; 96375; 97162; 97530; 99285; G0378

== ENCOUNTER → 2025-03-13 13:38 | Outpatient (REF) | payer MEDICARE, SELFPAY | LOC: RAD 13:38 | PROVIDERS: ATTENDING PHYSICIAN Surgery; FAMILY PHYSICIAN Family Medicine | DX: R19.07 Generalized intra-abdominal and pelvic swelling, mass and lump (principal); R91.1 Solitary pulmonary nodule | CPT/HCPCS: 71260; 74177; Q9967 ==

== ENCOUNTER → 2025-03-15 13:08 | Outpatient (REF) | payer MEDICARE, SELFPAY | LOC: RAD 13:08 | PROVIDERS: ATTENDING PHYSICIAN Student in an Organized Health Care Education/Training Program; FAMILY PHYSICIAN Family Medicine | DX: I73.9 Peripheral vascular disease, unspecified (principal) | CPT/HCPCS: 93923 ==

== ENCOUNTER → 2025-03-17 08:34 | Outpatient (REF) | payer MEDICARE, SELFPAY | LOC: RCS 08:34 | PROVIDERS: ATTENDING PHYSICIAN Nurse Practitioner Family | DX: R00.2 Palpitations (principal) | CPT/HCPCS: 93225; 93226 ==